=== PATIENT | female | born 1975 | race Caucasian/White ===

== ENCOUNTER 2023-11-17 15:37 | Emergency (ER) | payer MEDICAID ==
[~2023-11-17] VITALS: Ht 205.7 cm; Wt 102.6 kg
[2023-11-17 16:03] VITALS: BP 97/57; PULSE 84; RESP 16; TEMP 98.2; O2SAT 100
[2023-11-17] MEDS: KETOROLAC 30 MG/ML VIAL IVP ONE (16:30)
[2023-11-17 16:57] LABS: BASOPHILS % (AUTO) 0.8 % (0.0-2.0); EOSINOPHILS # (AUTO) 0.1 K/uL (0-0.4); EOSINOPHILS % (AUTO) 1.6 % (0.0-4.0); HEMATOCRIT 27.6 % (36-48); HEMOGLOBIN 9.3 g/dL (12.0-16.0); LYMPHOCYTES # (AUTO) 1.8 K/uL (2.5-16.5); LYMPHOCYTES % (AUTO) 33.7 % (20.5-51.1); MEAN CORPUSCULAR HEMOGLOBIN 31 pg (27-31); MEAN CORPUSCULAR HGB CONC 34 g/dL (33-37); MEAN CORPUSCULAR VOLUME 90.3 fL (80-94); MONOCYTES # (AUTO) 0.5 K/uL (0.8-1.0); MONOCYTES % (AUTO) 9.1 % (1.7-9.3); NEUTROPHILS % (AUTO) 54.8 % (42.2-75.2); PLATELET COUNT (AUTO) 209 K/uL (140-450); RED BLOOD CELL COUNT(AUTO) 3.05 MIL/uL (4.20-5.40); WHITE BLOOD COUNT (AUTO) 5.4 K/uL (4.8-10.8)
[2023-11-17 17:16] LABS: ANION GAP 10.3 (8-16); CALCIUM 8.3 mg/dL (8.5-10.1); CARBON DIOXIDE 25.8 mmol/L (21-32); CREATININE 0.8 mg/dL (0.6-1.3); POTASSIUM 4.1 mmol/L (3.5-5.1)
[2023-11-17] MEDS ORDERED: [UNRECOGNIZED DRUG - CODE] PO (17:42)
[2023-11-17] MEDS ORDERED: WATER STERILE 10 ML MC ONE (20:32)
[2023-11-17] MEDS: ESTROGENS CONJUGATED 25 MG INJ VIAL IVP ONE (20:35)
[2023-11-17] MEDS: NACL 0.9% 1,000 ML IV ONE (20:35)
[2023-11-17 20:52] VITALS: BP 112/65; PULSE 93; RESP 18; TEMP 98.2; O2SAT 100
== END 2023-11-17 20:52 | disposition home or self-care (01) ==
LOC: MED 15:37
DX: N93.8 Other specified abnormal uterine and vaginal bleeding (principal); R42 Dizziness and giddiness; Z98.890 Other specified postprocedural states; Z79.899 Other long term (current) drug therapy
CPT/HCPCS: 36415; 71045; 80048; 81025; 85025; 86886; 86900; 86901; 96374; 96375; 99284; J1885; J7030; Q0092